=== PATIENT | female | born 1965 ===

== ENCOUNTER 2017-04-07 20:23 | Emergency (ER) | payer OTHER ==
[2017-04-07 20:35] VITALS: BP 111/89; RESP 16; TEMP 98.2; O2SAT 99
--- NOTE | 2017-04-07 21:12 | ED PDOC ---
Lower Extremity Pain/Injury Time Seen by Provider: 04/07/17 20:23 Chief Complaint (Nursing): Lower Extremity Problem/Injury Chief Complaint (Provider): Lower Extremity Problem/Injury History Per: Patient History/Exam Limitations: no limitations Onset/Duration Of Symptoms: Days Current Symptoms Are (Timing): Still Present Additional Complaint(s): 51 y/o female presents to the emergency department with a complaint of a left leg and knee pain for a couple of days. Associated with left calf pain. Patient states she was recently treated for sciatic by orthopedist. Sent by ortho to rule out a blood clot. Denies taking medications for the relief of pain or any further medical complaints. Of note, patient has a history of tendonitis of the right shoulder. PMD: Dr. Kristy Whitney MD Past Medical History Reviewed: Historical Data, Nursing Documentation, Vital Signs Vital Signs: Last Vital Signs Temp 98.2 F 04/07/17 20:31 Pulse 104 H 04/07/17 20:31 Resp 16 04/07/17 20:31 BP 111/89 04/07/17 20:31 Pulse Ox 99 04/07/17 20:31 - Medical History PMH: Asthma, Fractures (Shoulder injury and surgery 10 years ago) Denies: Anemia, Anxiety, Bronchitis, COPD, Depression, HTN, Hypercholesterolemia, Hypothyroidism, Chronic Kidney Disease - Surgical History Surgical History: - Family History Family History: States: Diabetes, Hypertension - Home Medications Home Medications: Ambulatory Orders Medication Instructions Recorded Albuterol HFA [Ventolin HFA 90 60 puff INH PRN PRN 12/04/15 mcg/actuation (8 g)] Albuterol 0.083% [Albuterol 0.083% 3 ml NEB PRN PRN #0 neb 12/06/15 Inhal Mary (2.5 mg/3 ml) UD] Beclomethasone Dipropionate [Qvar] 2 puff INH BID #0 aer.w.adap 12/06/15 Promethazine/Codeine 10 ml PO Q6 PRN #0 udc 12/06/15 [Phenergan/Codeine Oral Syrup] Tiotropium Blount Inhaler 2 puff INH HS #0 inhaler 12/06/15 [Spiriva Inhalation Handihaler Device] predniSONE [Prednisone] 20 mg PO TID #0 tab 12/06/15 Prednisone 40 mg PO DAILY #4 tablet 06/29/16 Naproxen [Naprosyn Tab] 375 mg PO Q8 PRN #21 tab 04/07/17 - Allergies Allergies/Adverse Reactions: Allergies Allergy/AdvReac Type Severity Reaction Status Date / Time No Known Allergies Allergy Verified 04/07/17 20:31 Review of Systems ROS Statement: Except As Marked, All Systems Reviewed And Found Negative Musculoskeletal: Positive for: Leg Pain (Left), Other (Left knee pain and calf pain) Physical Exam - Reviewed Nursing Documentation Reviewed: Yes Vital Signs Reviewed: Yes - Physical Exam Appears: Positive for: Non-toxic, No Acute Distress Head Exam: Positive for: ATRAUMATIC, NORMAL INSPECTION, NORMOCEPHALIC Skin: Positive for: Normal Color, Warm, Dry Extremity: Positive for: Normal ROM, Tenderness (Tenderness to the anterior knee.), Swelling (Swelling and pain of the popliteal fossa of the knee. ). Negative for: Deformity, Other (No erythema or swelling of the knee itself noted. ) Neurologic/Psych: Positive for: Alert, Oriented - ECG O2 Sat by Pulse Oximetry: 99 (RA) Pulse Ox Interpretation: Normal - Progress ED Course And Treament: xry of knee left: neg duplex neg Medical Decision Making Medical Decision Making: Time: 20:23 Initial Impression: Left leg pain Initial Plan: --Knee 3 Views LT (RAD) --Duplex Lower Extrm (US) --Revaluation Scribe Attestation: Documented by Mireya Bruner, acting as a scribe for Jaclyn Shultz PA-C. Provider Scribe Attestation: All medical record entries made by the Scribe were at my direction and personally dictated by me. I have reviewed the chart and agree that the record accurately reflects my personal performance of the history, physical exam, medical decision making, and the department course for this patient. I have also personally directed, reviewed, and agree with the discharge instructions and disposition. Disposition - Clinical Impression Clinical Impression: Knee pain - Patient ED Disposition Is Patient to be Admitted: No - Disposition Disposition: Routine/Home Disposition Time: 22:49 Condition: FAIR Prescriptions: Naproxen [Naprosyn Tab] 375 mg PO Q8 PRN #21 tab PRN Reason: Pain, Moderate (4-7) Instructions: Leg Pain (ED)
--- NOTE | 2017-04-07 22:47 | US ---
EXAM: US Duplex Left Lower Extremity Veins CLINICAL HISTORY: 51 years old, female; Signs and symptoms; Swelling of limb; Lower extremity, left; Additional info: Left leg swelling TECHNIQUE: Real-time ultrasound scan of the veins of the left lower extremity with color Doppler flow, spectral waveform analysis and compression. EXAM DATE/TIME: 04/07/2017 8:57 PM COMPARISON: There are no prior studies for comparison. FINDINGS: Deep veins: Common femoral, superficial femoral, popliteal and posterior tibial veins were evaluated. All veins examined are compressible. There are no intraluminal filling defects. There is expected blood flow on Doppler imaging. There is change in waveform with augmentation. Impression: No deep venous thrombosis in the visualized vascular segments of the left lower extremity
[2017-04-07 23:06] VITALS: PULSE 83
--- NOTE | 2017-04-08 13:30 | RAD ---
PROCEDURE: Left Knee Radiographs. HISTORY: Knee pain COMPARISON: None available. FINDINGS: BONES: No acute displaced fracture. JOINTS: No dislocation. JOINT EFFUSION: No significant joint effusion. OTHER FINDINGS: None. IMPRESSION: No acute displaced fracture, dislocation, or significant joint effusion identified. If symptoms persist, or if there is continued clinical concern, x-ray follow-up in 7-10 days should be considered.
== END 2017-04-07 23:04 | disposition home or self-care (01) ==
LOC: H.ER 20:23
DX: M25.562 Pain in left knee (principal)